=== PATIENT | female | born 1980 | race Two or more races ===

== ENCOUNTER 2017-12-01 11:08 | Emergency (ER) | payer MEDICAID ==
[~2017-12-01] VITALS: Ht 165.1 cm; Wt 53.5 kg
[2017-12-01] MEDS ORDERED: HYDROCODONE/APAP 10/325MG 1 EA TABLET PO ONE (11:30)
[2017-12-01] MEDS ORDERED: ONDANSETRON 4 MG TAB.RAPDIS SL ONE (11:30)
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
[2017-12-01] MEDS ORDERED: HYDROCODONE/APAP 10/325MG 1 EA TABLET ONE ×2 (11:31→11:35)
[2017-12-01] MEDS ORDERED: ONDANSETRON 4 MG TAB.RAPDIS ONE ×2 (11:32→11:35)
[2017-12-01 15:09] VITALS: BP 126/80
== END 2017-12-01 15:13 | disposition home or self-care (01) ==
LOC: ER 11:09
DX: S70.12XA Contusion of left thigh, initial encounter (principal); S50.02XA Contusion of left elbow, initial encounter; V23.4XXA Motorcycle driver injured in collision with car, pick-up truck or van in traffic accident, initial encounter; Y93.89 Activity, other specified; Y92.410 Unspecified street and highway as the place of occurrence of the external cause; Y99.8 Other external cause status
CPT/HCPCS: 71045-TC; 73502; 73700-TC; A4606; Q0162; Z7610